=== PATIENT | male | born 1950 | race Caucasian/White ===

== ENCOUNTER → 2025-08-27 09:34 | Outpatient (REF) | payer MEDICARE, OTHER, SELFPAY ==
--- NOTE | 2025-08-02 14:00 | PN.DIAED02 ---
Referral
DSME Class Series Code: [id number]
Referred For: Diabetes Self-Management Training, Medical Nutrition Therapy, Self-Blood Glucose Monitoring, Long-Term Complication Instruction, Accute Complication Instruction, Continuous Glucose Monitoring, Medication management, Care Coordination,
Disease Management
PHI Release Authorization Form Signed: Yes
Demographic
(1) Type 2 diabetes mellitus with hyperglycemia
Status: Chronic
Qualifiers:
Diabetes mellitus medical terminologist insulin use: without detention use Qualified Code(s): E11.65 - Type 2 diabetes mellitus with hyperglycemia
Code(s): E11.65 - Type 2 diabetes mellitus with hyperglycemia
Patient's primary language-: Korean
Education: College degree
Occupation: Retired
- Social
Primary Support Person: Self & spouse
Primary Care Takers: Self & spouse
Living Arrangements: Self & spouse
- Learning Methods
Preferred Method: Hands-on demonstration
Barriers to Learning: None
Glycemic Control
- Blood Glucose Monitoring Assessment
Date: 08/02/25 (BS 110 IN OFFICE, 2 HOUR POST PRANDIAL)
Blood glucose monitoring at home: No (HE WILL REQUEST GLUCOMETER FROM PCP, PROVIDED SAMPLE KIT)
- Hyperglycemia Assessment
Experiences Hyperglycemia: Yes
Frequency: 4-6x per week
Time: Other (RANDOM, FREQUENT URINATION, THIRST, FATIGUE)
- Hypoglycemia Assessment
Patient carries glucose source: No
Patient experiences hypoglycemia: Yes (feels jittery when skipping meals)
Frequency: Other
- Blood Glucose Monitoring Results
Source: meter (BS 110: 2 HOUR POST PRANDIAL IN OFFICE)
- Hemoglobin A1c
Date: 07/12/25
A1C Percentage (%): 6.5
Medical History of Diabetes
Family Diabetes History: Mother (MOTHER DX IN 80'S)
Previous Diabetes Education: No
Previous visit with Dietitian: No
Complications/Comorbidity/Specialist: Hyperlipidemia (SIMVASTATIN 10 MG), Metabolic (T2D - NO MEDS), Other / symptoms (ASPIRIN 80 MG QD)
Measures
- Anthropometrics
Height: 5 ft 8 in
Actual Weight: 164 lb 12.8 oz
- Blood Pressure / Pulse
Blood pressure: 113/78
Pulse: 55
- Diabetes Management
Medical Management for Diabetes: Complete physical exam (05/28/2025), Dental exam (08/01/2025)
Self-Care
- Tobacco Usage
Do you now, or have you ever smoked?: Never smoked
- Alcohol & Drugs Usage
Drinks Alcohol: No
- Meals & Dining
Meals & Dining: Patient skips meals: Yes (feels hypoglycemia symptoms), Food Intolerance / Allergy: No, Cultural / Religion Dietary Needs: No
Primary Food Electronics System Mechanic: Self
Primary Vp Cardiovascular Service Line: Self
Dining Out Frequency: 1-3x per week
- Physical Activity
Physical Limitation: No
Patient participates in physical Activity: Yes
Activity Types: walking (states he walks occasionally with his )
Frequency: < 1 per week
- Self Foot-Care
Foot Problems: None
- Patient-Self Assessment
Diabetes Knowledge: Poor
Feelings About Diabetes: Adaptation
General Health: Good
Importance of Health: Extremely
Stress Level: Medium
Barriers to Diabetes Management: Nothing
Depression Survey Score: 1
- Diabetes Identification
Carries Diabetes Identification: No
Diabetes Identification Information Provided: Yes
Care Plan
- Plan of Care
Plan of Care:
08/02/2025 DSME INITIAL ASSESSMENT
Met with participant today for registration and initiation of Diabetes Self-management. Pt was recommended by his PCP due to HbA1c of 6.5% on
07/12/2025. He states he was feeling 'wonky', frequent urination (has enlarged prostate), fatige and weakness between meals, especially if skipping meals. States he has had prediabetes for several years, was just told to watch his carbohydrates
and did know how to proceed. His next appt with PCP is November 2025. He has not had an eye appt since [place], has upcoming appointment on 08/29/2025.
He does not monitor glucose, states MD never discussed this. I provided sample of Contour Next glucose meter and supplies. Demonstrated how to monitor glucose and recommended he check once a day in the AM and alternate 2 hours after meals and
review with provider. BS today was 110 2 hours postprandial. He plans to contact his provider to order additional glucose testing supplies.
We reviewed complications of diabetes, fasting and 2 hour post prandial glucose goals, signs and symptoms of hyperglycemia, signs and symptoms of hypoglycemia, and hypoglycemia protocol. We discussed exercise recommendations of at least 30 minutes
per day to help lower glucose levels. He occasionally walks with his , no formal exercise plan. Was agreeable to increase walking frequency and duration.
I reviewed and provided diabetes management booklet, insurance billing code and advised he contact her health plan to discuss coverage and cost.
He has phone # for office if additional needs arise prior to class.
--- NOTE | 2025-08-02 14:16 | PN.DIAED04 ---
Education Record
- Education Record
Class Attended: Other (Initial DSME consultation)
DSME Class Series Code: [id number]
Instructor: Nurse Practitioner (ADENIKE Johansen)
Pre-Program Knowledge: No knowledge
Pre-Test Score (%): 47
Goals
- Goal 1
Being Active: Exercise 30 minutes-5 times per week
Goals To Be Evaluated: Exercise 30 mins-5x/week
- Goal 2
Healthy Eating: Make better food choices
Goals To Be Evaluated: Make better food choices
- Goal 3
Monitoring: Follow monitoring schedule
Goals To Be Evaluated: Follow monitoring times
--- NOTE | 2025-08-28 12:16 | PN.DIAED14 ---
This is to notify you that your patient with diabetes, SANG RODRIGUEZ ( 1950), has enrolled in our diabetes self-management classes that are being held at [facility].
These classes will include an introduction to diabetes, diet, medication, exercise and prevention of complications. At the end of our class series, you will receive a report of your patient's participation and progress for your records.
Please contact me at the Diabetes Center, , if there is any particular information regarding your patient that might be helpful to me.
Sincerely,
Adam JEONG-DAVID, [facility]
--- NOTE | 2025-08-28 12:17 | PN.DIAED04 ---
Education Record
- Education Record
Class Attended: Class 1
DSME Class Series Code: [id number]
Instructor: Registered Nurse (Carolee Harris RN)
Class Curriculum:
Outpatient Diabetes Education Program:
Class 1 (120 minutes)
Describe the diabetes disease process and treatment options
Diabetes management
Develop personal strategies to promote health and behavior change
Integrate psychosocial adjustment for daily living
Monitor blood glucose and other parameters. Interpret and use the results for self-management decision making
Prevent, detect, and treat acute complications
Class Length (mins): 120
Post-Class 1 Test Score (%): 100
== END ==
LOC: DES 09:34
PROVIDERS: ATTENDING PHYSICIAN Physician Assistant Medical
DX: E11.9 Type 2 diabetes mellitus without complications (principal)
CPT/HCPCS: 99078

== ENCOUNTER → 2025-09-03 08:31 | Outpatient (REF) | payer MEDICARE, OTHER, SELFPAY ==
--- NOTE | 2025-09-04 09:22 | PN.DIAED04 ---
Education Record
- Education Record
Class Attended: Class 2
DSME Class Series Code: [id number]
Instructor: Registered Dietitian (Faith Iniguez, RD, LDN, CDE)
Class Curriculum:
Outpatient Diabetes Education Program:
Class 2 (120 minutes)
Incorporate nutritional management into lifestyle
Understanding nutritional value
Understanding carbohydrate counting
Class Length (mins): 120
== END ==
LOC: DES 08:31
PROVIDERS: ATTENDING PHYSICIAN Physician Assistant Medical
DX: E11.9 Type 2 diabetes mellitus without complications (principal)
CPT/HCPCS: 99078

== ENCOUNTER → 2025-09-10 14:50 | Outpatient (REF) | payer MEDICARE, OTHER, SELFPAY ==
--- NOTE | 2025-09-11 14:02 | PN.DIAED04 ---
Education Record
- Education Record
Class Attended: Class 3
DSME Class Series Code: [id number]
Instructor: Registered Dietitian (Faith Iniguez, RD, LDN, CDE)
Class Curriculum:
Outpatient Diabetes Education Program:
Class 3 (120 minutes)
Incorporate nutritional management into lifestyle
Class Length (mins): 120
Post-Class 2 & 3 Test Score (%): 88
== END ==
LOC: DES 14:50
PROVIDERS: ATTENDING PHYSICIAN Physician Assistant Medical
DX: E11.9 Type 2 diabetes mellitus without complications (principal)
CPT/HCPCS: 99078

== ENCOUNTER → 2025-09-17 09:11 | Outpatient (REF) | payer MEDICARE, OTHER, SELFPAY ==
--- NOTE | 2025-09-18 09:24 | PN.DIAED04 ---
Education Record
- Education Record
Class Attended: Class 4
DSME Class Series Code: [id number]
Instructor: Registered Nurse (Carolee Harris RN)
Class Curriculum:
Outpatient Diabetes Education Program:
Class 4 (120 minutes)
Develop personal strategies to promote health and behavior change
Incorporate physical activity into lifestyle
Utilize medications safety for maximum therapeutic effectiveness
Understand different medication/insulin mechanism of action
Preparing for travel
Class Length (mins): 120
Post-Class 4 Test Score (%): 93
== END ==
LOC: DES 09:11
PROVIDERS: ATTENDING PHYSICIAN Physician Assistant Medical
DX: E11.9 Type 2 diabetes mellitus without complications (principal)
CPT/HCPCS: 99078

== ENCOUNTER → 2025-09-24 08:46 | Outpatient (REF) | payer MEDICARE, OTHER, SELFPAY ==
--- NOTE | 2025-09-25 13:58 | PN.DIAED04 ---
Education Record
- Education Record
Class Attended: Class 5
DSME Class Series Code: [id number]
Instructor: Registered Nurse (Carolee Harris RN)
Class Curriculum:
Outpatient Diabetes Education Program:
Class 5 (120 minutes)
Prevent, detect, and treat acute complications
Prevent, detect, and treat chronic complications through risk reduction
Develop personal strategies to address psychosocial issues and concerns
Development of diabetes self-management support plan
Letter to physician with DSMS plan attached sent
Class Length (mins): 120
Post-Program Knowledge: Demonstrates competency
Post-Test Score (%): 83
Post-Program Assessment
- Post-Program Assessment
Actual Weight: 164 lb
Blood pressure: 140/80
Post-Program Depression Survey Score: 2
Reviewing Previous Goals?: Yes
Pre-Program Depression Survey Score: 1
- Goals 1 Evaluation
Goals To Be Evaluated: Exercise 30 mins-5x/week
- Goals 2 Evaluation
Goals To Be Evaluated: Make better food choices
- Goals 3 Evaluation
Goals To Be Evaluated: Follow monitoring times
--- NOTE | 2025-09-25 14:00 | PN.DIAED16 ---
This is to notify you that your patient with diabetes, SANG RODRIGUEZ ( 1950), has attended the entire series of Diabetes Self-Management Education Classes.
Class 1 (120 minutes): Diabetes Overview - monitoring, stress/psychosocial adjustment, support, goal setting
Class 2 (120 minutes): Meal Planning - serving sizes, menu plans
Class 3 (120 minutes): Introduction to Carbohydrate Counting, Analyzing Food Labels
Class 4 (120 minutes): Medication, Exercise and Activity
Class 5 (120 minutes): Sick Day Management, Strategies to Reduce Complications, Problem Solving, Resources
The following behavioral goals were identified:
Goal #1: Exercise 30 mins-5x/week
Goal #2: Make better food choices
Goal #3: Follow monitoring times
A follow-up call will be made within three to six months to evaluate attainment of these goals and to check post-program Hemoglobin A1c and overall progress. All class participants are encouraged to contact me if I can be any further assistance in
learning how to manage their diabetes.
Sincerely,
Adam JEONG-, [facility]
== END ==
LOC: DES 08:46
PROVIDERS: ATTENDING PHYSICIAN Physician Assistant Medical
DX: E11.9 Type 2 diabetes mellitus without complications (principal)
CPT/HCPCS: 99078